=== PATIENT | male | born 1985 | race Caucasian/White ===

== ENCOUNTER 2019-11-20 13:53 | Emergency (ER) | payer SELFPAY ==
[2019-11-20 14:08] VITALS: BP 121/60; PULSE 81; RESP 14; TEMP 37.5; O2SAT 99
--- NOTE | 2019-11-20 14:15 | ED.SKABFB ---
HPI - Skin/Abscess/Foreign Bdy General Chief complaint: Skin/Abscess/Foreign Body Stated complaint: Stung Time Seen by Provider: 11/20/19 14:20 Source: patient and RN notes reviewed Mode of arrival: ambulatory Limitations: no limitations History of Present Illness HPI narrative: This is a 34 years old male presents to the office for an evaluation of insect bite of his right hand. He felt stung by insect; but he did not see it. He got stung around 1030am. He worked for [employer]. He is right hand dominated. TD is up to date. He normally carry EpiPen because he is highly allergic to wasp sting. Denies history of intubation due to insect stung. He also request a refill on his epi pens. Related Data Allergies Allergy/AdvReac Type Severity Reaction Status Date / Time amoxicillin Allergy Unknown Unknown Verified 11/20/19 14:23 Penicillins Allergy Unknown Unknown Verified 11/20/19 14:23 Review of Systems Review of Systems: Narrative: CONSTITUTIONAL: Denies fever, chills ENT: Denies swollen lip, swollen tongue, or difficulty swallowing CARDIOVASCULAR: Denies chest pain, palpitation RESPIRATORY: Denies dyspnea, wheezing GASTROINTESTINAL: Denies abdominal pain, nausea, vomiting SKIN: Reports right hand swollen, red and itchy MUSCULOSKELETAL: Denies acute back pain NEUROLOGIC: Denies lightheaded/dizziness All other systems reviewed are negative, except as documented in HPI. PMFSH Comments At time of signature, I agree with nursing past medical, surgical, social and family history. There is no relevant family history pertinent to the presenting complaint. Exam Narrative: Exam Narrative: GENERAL: This is a well-nourished, well-developed patient, in no apparent distress. CARDIOVASCULAR: Regular rate and rhythm without murmurs, gallops, or rubs. RESPIRATORY: Clear to auscultation. Breath sounds equal bilaterally. No wheezes, rales, or rhonchi. GASTROINTESTINAL: Abdomen soft, non-tender, nondistended. Bowel sounds are active. No hepato-splenomegaly, or palpable masses. No guarding. SKIN: right dorsal hand noted erythema, edematous and warmth to palpation; no lymphadenititis noted. No stinger noted. NEURO: awake, alert, and oriented to person, place and time. There were no obvious focal neurologic abnormalities. Steady gait EXTREMITIES: Normal range of motion of bilateral hands and fingers. Radius pulses intact. Cap refills brisk. Reed Coma Scale Eye Opening: Spontaneous 4 [place] Coma Scale Motor: Obeys Commands 6 [place] Coma Scale Verbal: Oriented 5 Course Vital Signs Vital signs: Vital Signs Temperature 99.5 F 11/20/19 14:08 Pulse Rate 81 11/20/19 14:08 Respiratory Rate 14 11/20/19 14:08 Blood Pressure 121/60 11/20/19 14:08 Pulse Oximetry 99 11/20/19 14:08 Temperature 99.5 F 11/20/19 14:08 Pulse Rate 81 11/20/19 14:08 Respiratory Rate 14 11/20/19 14:08 Blood Pressure 121/60 11/20/19 14:08 Pulse Oximetry 99 11/20/19 14:08 MDM - Skin/Abscess/Foreign Bdy MDM Narrative Medical decision making narrative: Discharge instructions reviewed with patient, as well as provided in writing per nursing staff. The instructions also include specific and strict return/GO TO THE ER as well as f/u information. All questions have been answered, and the patient deny any further questions with discharge and discharge plan. Differential Diagnosis Differential diagnosis: Likely abscess of skin or subcutaneous tissue, viral exanthem, dermatophytosis, urticaria, allergic reaction to drug, cellulitis, eczema, insect bites, impetigo and contact dermatitis Critical Care Time Critical Care Time Critical Care Time: No Discharge Plan Discharge Clinical Impression: Insect bite Qualifiers: Encounter type: initial encounter Site of insect bite: hand Laterality: right Qualified Code(s): S60.561A - Insect bite (nonvenomous) of right hand, initial encounter Patient Disposition: Home, Self-Care Condition:
[2019-11-20] MEDS: methylPREDNISolone ACETATE 80 MG/ML VIAL IM (14:35)
[2019-11-20 14:51] VITALS: BP 118/64; PULSE 80; RESP 16; O2SAT 99
== END 2019-11-20 14:51 | disposition home or self-care (01) ==
PROVIDERS: Emergency Provider Nurse Practitioner
DX: S60.561A Insect bite (nonvenomous) of right hand, initial encounter (principal); W57.XXXA Bitten or stung by nonvenomous insect and other nonvenomous arthropods, initial encounter; Y99.0 Civilian activity done for income or pay
CPT/HCPCS: 96372; 99213; G0463; J1040